=== PATIENT | male | born 1965 | race African-American/Black ===

== ENCOUNTER 2016-11-29 13:29 | Emergency (ER) ==
[2016-11-29] MEDS ORDERED: CATAPRES PO ONE (13:50)
[2016-11-29] MEDS ORDERED: DUONEB (A & A) INH ONE (13:50)
[2016-11-29] MEDS ORDERED: LASIX PO ONE (14:16)
[2016-11-29] MEDS ORDERED: PRINIVIL PO ONE (14:16)
--- NOTE | 2016-11-29 14:23 | PROVIDER DOCUMENTATION ---
HPI-Respiratory General - General Chief Complaint: Cough Stated Complaint: CONGESTION Time Seen by Provider: 11/29/16 13:48 Source: patient Allergies/Adverse Reactions: Patient Allergies Allergy/AdvReac Type Severity Reaction Status Date / Time No Known Allergies Allergy Verified 11/29/16 13:34 Home Medications: Home Medication List Medication Instructions Recorded Confirmed Last Taken Type ATORVAstatin [Lipitor] 40 mg PO DAILY #90 tablet 06/16/15 11/29/16 Unknown Rx Metoprolol Succinate 50 mg PO BID 06/16/15 11/29/16 03/16/15 History Metoprolol Succinate E.r. [Toprol 50 mg PO DAILY #90 tablet 06/16/15 11/29/16 Unknown Rx Xl] PRAVAstatin [Pravachol] 40 mg PO QHS 06/16/15 11/29/16 03/16/15 History - History of Present Illness-Resp Nature of Presenting Problem: Pt is a 51 yom with uncontrolled Hypertension due to no prescription pt reports has had a nonproductive cough and developed sob x 1 day. Reports a sorethroat that has resolved. Denies edema,n,v,f. Quality of Pain: reports: none Severity in ED: reports: moderate Onset/Duration: reports: 24 hours ago Timing: reports: still present Episode Frequency: no prior episodes Current Respiratory Medication Therapy: Initiated see nurses note Similar Symptoms Previously?: Yes Recently seen or treated by another doctor?: No Review of Systems - Adult - REVIEW OF SYSTEMS - ADULT Constitutional: denies: chills, fever, fatique Eyes: reports: no symptoms reported Ears, Nose, Mouth & Throat: reports: no symptoms reported Cardiovascular: denies: chest pain, irregular heart rate, orthopnea, syncope Respiratory: reports: cough, shortness of breath. denies: pleurisy, wheezing Gastrointestinal: reports: no symptoms reported Genitourinary: reports: no symptoms reported Musculoskeletal: reports: no symptoms reported Integumentary: reports: no symptoms reported Neurological: reports: no symptoms reported Psychiatric: reports: no symptoms reported Endocrine: reports: no symptoms reported Hematologic/Lymphatic: reports: no symptoms reported Allergic/Immunologic: reports: no symptoms reported All Other Systems: Reviewed and Negative Past History - Adult - PAST MEDICAL HISTORY-ADULT Review of Records: reports: Nursing Assessment Review Major Childhood Illnesses: reports: denies history Cardiovascular: reports: HTN, hyperlipidemia - PRIOR SURGERIES/PROCEDURES Surgical/Procedure History: reports: orthopedic (extremity) - IMMUNIZATION STATUS Childhood Immunizations: See Nurse Assessment Flu Vaccine: See Nurse Assessment - SOCIAL HISTORY Smoking: cigarettes, less than 1 pack/day Provider spent 3-5 mins advising pt. on dangers of tobacco.: Discussed manners to quit use, and f/u contacts for add'l counseling. Substance Use: alcohol Physical Exam-General - PHYSICAL EXAM-ADULT Initial Vital Signs Reviewed: Yes - CONSTITUTIONAL General Appearance: appears well, alert, obese, other (Hypertensive) - EYES Eyes: PERRL/EOMI - RESPIRATORY Respiratory: chest non-tender, normal breath sounds, no pleuratic chest pain, respiratory distress, rales (mild rales at the bases) - CARDIOVASCULAR Cardiovascular: regular rate, rhythm - GASTROINTESTINAL (ABDOMEN) Abdominal Exam: normal bowel sounds, non tender, soft, no organomegaly - MUSCULOSKELETAL Back Exam: normal inspection, no CVA tenderness, no vertebral tenderness Extremity: normal range of motion, non-tender, no pedal edema Peripheral Pulses: dorsalis-pedis (R): 2+, dorsalis-pedis (L): 2+ - SKIN Integumentary: normal color, normal turgor, warm/dry - NEUROLOGIC Neurologic: grossly normal - PSYCHIATRIC Psych/Mental Status: normal mood/affect, normal thought content, normal thought process, oriented x 3 Progress - PLAN OF CARE/RESULTS Progress/Plan/Lab Results: Orders Category Date Time Status Finger Stick Blood Sugar (ED) DIRECTED Care 11/29/16 14:19 Active CHEST-2 VIEWS [RAD] Stat Exams 11/29/16 13:49 Taken CBC WITH ELECTRONIC DIFF [HEME] Stat Lab 11/29/16 14:19 Uncollected COMPREHENSIVE METABOLIC PANEL [CHEM] Stat Lab 11/29/16 14:[address] Stat Lab 11/29/16 14:03 Received PRO B-NATRIURETIC PEPTIDE Stat Lab 11/29/16 14:19 Ordered Albuterol 2.5MG/Ipratrop 0.5MG [Duoneb (A & A)] Med 11/29/16 13:50 Discontinued 3 ml INH NOW ONE Clonidine [Catapres] Med 11/29/16 13:50 Discontinued 0.2 mg PO NOW ONE Furosemide [Lasix] Med 11/29/16 14:16 Discontinued 60 mg PO NOW ONE LISINOpril [Prinivil] Med 11/29/16 14:16 Discontinued 20 mg PO NOW ONE Aerosol Treatments Routine Oth 11/29/16 13:51 Active Aerosol Treatments Stat Oth 11/29/16 13:51 Active EKG [EKG] Stat Ther 11/29/16 13:50 Ordered Vital Signs - 24 hr 11/29/16 13:35 Temperature 98.4 F Pulse Rate 95 H Respiratory 20 Rate Blood Pressure 194/110 O2 Sat by Pulse 96 Oximetry - REASSESSMENT Reassessment #1 Time Reassessed: 14:22 (Pt blood pressure was discussed in great length with pt by MD Tate and ways that pt can afford medication with help. Pt will be given a 2month prescription that he can obtain from [employer] for free and he will be given the free [facility] phone number so he can set up an appt with them pt verbally agreed and understood poc.) Reassessment #2 Time Reassessed: 15:10 (Reports is feeling much better and declines admission to ER.) - EKG 1 Time of EKG reading by physician:: 14:06 EKG Read and Signed by:: Gary Tate EKG Interpretation (*Must complete 3 of following elements*): Normal Rate: 90 Rhythm: nsr [place]: normal QRS: normal AR Interval: normal - XRAY 1 XRAY: Bilateral XRAY Study: Chest Impression: Abnormal (mild cardiomegaly with mild pulm edema) Departure - Departure Time of Disposition Order: 15:10 DIAGNOSIS: Uncontrolled hypertension, Poor compliance with medication, SOB (shortness of breath) Disposition: HOME 01 Certified Medical Emergency: Emergent Condition: Stable Additional Instructions: [facility] in [place], [place] Address: [address] [place] [id number] Hours: Open today 8AM4PM Get BP medications filled and take them as instructed. ED Follow Up Instructions: You have been treated by a care provider in the Emergency Department. These instructions are being provided to you so you can have an understanding of how to care for yourself upon discharge. Upon discharge from the Emergency Department, you are responsible for making arrangements for follow-up care by a physician of your choice. Take all prescribed medications as directed. Return to the Emergency Department immediately for any new or worsening symptoms. You may call the Physician Referral phone number at [phone] to obtain a list of Physicians who are taking new patients. Referrals: None,PCP [Primary Care Provider] - Attestation - Scribe Verification/Attestation Scribe:: Sofiya Colon Acting as Scribe for:: Gary Tate Scribe documention review:: This chart was documented by a scribe and accurately reflects the service the provider performed and the decisions made by the provider.
--- NOTE | 2016-11-29 14:24 | Diag Imaging Result Document ---
PROCEDURE NAME: CHEST-2 VIEWS - 11/29/2016 FRONTAL AND LATERAL CHEST, TWO VIEWS: FINDINGS: The lungs are well expanded. The heart is mildly enlarged. Mild central vascular prominence. No consolidation. No pleural effusions. IMPRESSION: Mild cardiomegaly with mild pulmonary edema.
[2016-11-29 14:37] LABS: MANUAL DIFF NEEDED? NO
[2016-11-29 14:39] LABS: BASO% 0.4 % (0.0-0.8); EOS# 0.06 X1000 (0.0-0.7); EOS% 0.8 % (0.0-10.0); HEMATOCRIT 41.8 % (42.0-52.0); HEMOGLOBIN 13.7 g/dL (14.0-18.0); IMM GRAN# 0.02 X1000 (0.0-0.04); IMM GRAN% 0.3 % (0.0-0.5); LYMPH# 1.57 X1000 (1.2-3.4); LYMPH% 20.5 % (20.5-51.1); MCH 27.3 PG (27-31); MCHC 32.8 g/dL (33-37); MCV 83.3 FL (81-99); MONO# 0.77 X1000 (0.11-0.59); PLT 320 X1000 (130-400); RBC 5.02 XMIL (4.7-6.1)
[2016-11-29 14:57] LABS: AGAP 10; ALBUMIN 4.2 g/dL (3.5-5.0); ALKALINE PHOSPHATASE 86 U/L (32-122); BUN 13 mg/dL (8-22); CALCIUM 9.1 mg/dL (8.8-10.2); CHLORIDE 104 mmol/L (98-107); COSMO 277; GOT 17 U/L (10-34); GPT 18 U/L (10-44); POTASSIUM 3.7 mmol/L (3.5-5.1); SODIUM 139 mmol/L (136-145); TCO2 25 mmol/L (25-35); TOTAL PROTEIN 7.3 g/dL (6.3-8.3)
[2016-11-29 15:14] VITALS: BP 151/87
--- NOTE | 2016-11-29 15:30 | EKG Report ---
Test Performed on : 11/29/2016 2:06:10 PM Test Reason : CP Blood Pressure : / mmHG Vent. Rate : 090 BPM Atrial Rate : 090 BPM P-R Int : 188 ms QRS Dur : 086 ms QT Int : 358 ms P-R-T Axes : 055 002 041 degrees QTc Int : 437 ms Normal sinus rhythm. Normal ECG No previous ECGs available Unconfirmed Result
== END 2016-11-29 15:20 | disposition home or self-care (01) ==
LOC: P.ED 13:29
DX: I10 Essential (primary) hypertension (principal); Z91.14 Patient's other noncompliance with medication regimen; R06.02 Shortness of breath; R05 Cough; I51.7 Cardiomegaly; J81.1 Chronic pulmonary edema; E78.5 Hyperlipidemia, unspecified; F17.210 Nicotine dependence, cigarettes, uncomplicated; Z71.6 Tobacco abuse counseling; Z79.899 Other long term (current) drug therapy
CPT/HCPCS: 71020; 80053; 82948; 83880; 85025; 87804; 93005; 94640; 99284